=== PATIENT | male | born 1990 | race African-American/Black ===

== ENCOUNTER 2017-02-06 09:32 | Emergency (ER) | payer OTHER ==
--- NOTE | ~2017-02-06 | CR21 ---
[facility] A Service of [facility] RADIOLOGY TEXT RESULTS PATIENT: ROBBY OLIVER LOCATION: [facility] : [birth year] UNIT #: [id number] AGE: [address]: Brianna Gutierrez MD SEX: M ORDER DR: [id number] [facility] [address] [place], [place] [address] [id number] E MR#: [id number] Acc #: [id number] NAME: ROBBY OLIVER : 1990 SEX: M STUDY DATE/TIME: 02/06/2017 10:26 UNIT: [facility] ROOM: STUDY DESCRIPTION: CR Ankle Min 3 Views Rt Attending Physician: Brianna Gutierrez M.D. Ordering Physician: Ed Doctor [id number] [facility] Primary Care Physician: Edgard Espinoza M.D. MEDICAL IMAGING REPORT This report is preliminary unless electronic signature is present EXAM Right ankle 3 views INDICATION Right ankle pain for 2-2 days. No comparisons. FINDINGS Ankle mortise intact. No fracture. Soft tissue structures unremarkable. IMPRESSION Negative. Dictated by... Mukesh Browning M.D. THIS IS AN ELECTRONICALLY VERIFIED REPORT Mukesh Browning M.D. at 02/06/2017 12:25 PM JONY/dana TD: 02/06/2017 11:19 JOB #: [id number] MEDICAL IMAGING REPORT Page 1 of 1 COPY
[~2017-02-06 09:32] MED LIST: ALBUTEROL17 GM INH; AMOXICILLIN PO; CARDIZEM CD240 M1 PO; CORDARONE200 M1 PO; FLEXERIL10 MG PO; HYDROXYZINE HCL25 M1 PO; LISINOPRIL-HCTZ1 T14 PO; LISINOPRIL20 MG PO; NO MEDICATIONS; PERCOCET5/325 PO; PHENERGAN25 MG PO; PRILOSEC PO; SAVAYSA60 MG PO; VOLTAREN75 MG PO
== END 2017-02-06 12:00 | disposition home or self-care (01) ==
LOC: CED 09:32
DX: S93.402A Sprain of unspecified ligament of left ankle, initial encounter (principal); I10 Essential (primary) hypertension; F41.9 Anxiety disorder, unspecified; F17.200 Nicotine dependence, unspecified, uncomplicated
CPT/HCPCS: 73610; 99283